=== PATIENT | female | born 1970 | race African-American/Black ===

== ENCOUNTER → 2017-04-20 | Emergency (ER) | payer MEDICAID | END | disposition left against medical advice (07) | LOC: ER 22:51 | DX: M54.9 Dorsalgia, unspecified (principal); Z53.21 Procedure and treatment not carried out due to patient leaving prior to being seen by health care provider ==

== ENCOUNTER 2017-07-15 18:13 | Emergency (ER) | payer MEDICAID ==
[~2017-07-15] VITALS: Ht 157.5 cm; Wt 57.2 kg
[2017-07-15] MEDS ORDERED: cloNIDine HCL 0.1 MG TAB ONE (19:09)
[2017-07-15] MEDS ORDERED: SODIUM CHLORIDE 0.9% 1,000 ML IV ONE (19:14)
[2017-07-15] MEDS ORDERED: cloNIDine HCL 0.1 MG TAB PO ONE (19:30)
[2017-07-15 19:48] LABS: Urine Bacteria NONE SEEN /hpf (None Seen); Urine Blood 1+ /uL (Negative); Urine Specific Gravity 1.011 (1.001-1.035); Urine WBC 2 /hpf (0 - 5)
[2017-07-15 19:49] LABS: Urine Pregnacy Test Negative (Negative)
[2017-07-15 20:09] LABS: Alcohol, Urine < 3.0 mg/dL (0-5); Amphetamine Screen, Urine NEGATIVE (NEGATIVE); Barbiturate Scree,Urine NEGATIVE (NEGATIVE); Benzodiazephine Screen, Urine NEGATIVE (NEGATIVE); Cannabinoid Screen, Urine POSITIVE (NEGATIVE); Cocaine Screen, Urine NEGATIVE (NEGATIVE); Opiate Scree,Urine NEGATIVE (NEGATIVE); Phencyclidine Screen, Urine NEGATIVE (NEGATIVE)
[2017-07-15 20:10] LABS: Hemoglobin 15.3 g/dL (12.2-16.2); Red Cell Distribution Width 16.3 % (11.8-14.3); White Blood Cell 3.5 10^3/uL (4.4-10.8)
[2017-07-15 20:12] LABS: Basophils # (auto) 0 uL; Basophils % (auto) 0.7 % (0.0-2.0); Eosinophils # (auto) 0 uL; Eosinophils % (auto) 0.6 % (0.0-7.0); Hematocrit 45.7 % (36.0-46.0); Lymphocytes # (auto) 1.1 uL; Mean Corpuscular Hgb Conc. 33.6 g/dL (32.0-36.0); Mean Corpuscular Volume 83.4 fL (80.0-100.0); Monocytes # (auto) 0.4 uL; Neutrophils # (auto) 1.9 uL; Neutrophils % (auto) 54.7 % (37.0-80.0); Platelet Count (auto) 33 10^3/uL (140-450); Red Blood Cells 5.47 10^6/uL (4.0-5.20)
[2017-07-15 20:17] LABS: Albumin 3.4 g/dL (3.4-5.0); BUN/Creatinine Ratio 14.6; Bilirubin, Total 0.6 mg/dL (0.2-1.0); Calcium 8.4 mg/dL (8.5-10.1); Magnesium 2.1 mg/dL (1.6-2.6); Total Protein 8.5 g/dL (6.4-8.2)
[2017-07-15 20:23] LABS: Nucleated Red Blood Cells % 4.9 %
[2017-07-15] MEDS ORDERED: METOPROLOL TARTRATE 25 MG TAB ONE (21:58)
[2017-07-15] MEDS ORDERED: METOPROLOL TARTRATE 50 MG TAB PO ONE (22:15)
[2017-07-15 23:40] VITALS: BP 174/118
== END 2017-07-15 23:35 | disposition home or self-care (01) ==
LOC: ER 18:20
DX: I10 Essential (primary) hypertension (principal); F17.210 Nicotine dependence, cigarettes, uncomplicated
CPT/HCPCS: 36415; 71010; 80053; 80307; 81001; 81025; 83735; 84484; 85025; 93005; 96360; 99285; J7030